=== PATIENT | female | born 1945 | race Caucasian/White ===

== ENCOUNTER 2016-04-07 07:23 | Emergency (ER) | payer MEDICARE, MEDICAID ==
[~2016-04-07] VITALS: Ht 162.6 cm; Wt 60.8 kg
[~2016-04-07 07:23] MED LIST: ALBUTEROL2 PUFFS/17 IN; ASPIRIN 81MG TA81 MG PO; MEDROL 4MG. DOSE4 MG PO; PAROXETINE HCL20 MG PO; SPIRIVA HA1 PUFF/INH IH; ZITHROMAX Z-PA250 M2 PO
[2016-04-07] MEDS ORDERED: HYDROXYZINE PAM25 MG PO (07:40)
[2016-04-07 08:08] LABS: HEMOGLOBIN 13.7 g/dL (12.2-16.2)
[2016-04-07 08:09] LABS: LYMPH % 9.3 % (10-50.0)
--- NOTE | 2016-04-07 08:12 | Emergency Room Report ---
History of Present Illness Time Seen by MD Aguilar Presenting Problem in Triage Pt arrived:Walked Presenting Problem:C/O ACHING AND COLD ALL OVER. C/O PAIN IN R RIB AREA. C/O PAIN WITH INSPIRATION. PT STATE BEGAN HAVING PAIN IN R SHOULDER AND R NECK AREA THAT BEGAN AFTER A "COUGHING FIT". PT STATES HAVING A PRODUCTIVE COUGH IS NORMAL FOR HER. 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 N Clinical Suspician of Infection? Y Mental Status: 1 - Regular (Normal Baseline) Sepsis Risk:Severe Sepsis Risk Have you (or family members/close friends) recently traveled outside the [place]? N If Yes, where/when: Have you had exposure to infectious disease within the past month? N TB? Other? Specify: Hx COPD, smokes one ppd; has had fever and chills with sputum, myalgias, intense coughing for the past three days; no vomiting; is incontinent with extreme coughing; has chronic SOB but states she had to "mop the floor while sitting in a chair" two days ago due to the wheezing. She uses Spiriva but is not on steroids daily and not on oxygen at home. She has rib pain when coughing intensely. No chest pain otherwise. No vomiting, no abdominal pain, no recent weight loss. No earache or sore throat. Denies any new calf pain. ALLERGIES Coded Allergies: No Known Allergies (04/07/16) Home Medications Active Scripts Albuterol (Albuterol Inhaler 17GM) 1 PUFF IN Q4HP PRN SOA #1 INH Ref 2 Prov: 12/30/14 Reported Medications Tiotropium [place] (Spiriva) 1 PUFF IH QHS ASPIRIN (Aspirin) 81 MG PO QHS Hydroxyzine Pamoate 25 MG PO DAILY #30 PAROXETINE HCL (Paroxetine Hcl) 20 MG PO DAILY #30 History Medical History General CAD? No Angina: No MD: No Hypertension? No Hyperlipidemia? No CHF? No DVT? No PE? No COPD? Yes Asthma? No Anemia? No GERD? No Gastric ulcers? No GI Bleed? No Hernia? No Thyroid Problems? No Hypothyroidism? No CVA? No Seizures? No Diabetes? No Insulin Dependent: No Insulin Pump: No Home FSBS? No Renal Insuffiency? No End Stage Renal Disease? No UTI? Yes Stones? No BPH? No GB Disease: No Nephritic Syndrome? No Asplenia? No Hepatitis? No Sickle Cell Disease? No Arthritis? Yes Migraines? No Cataracts? No Glaucoma? No MRSA? No HIV? No TB? No Anxiety? Yes Depression? 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 Physical Exam Vital Signs Vital Signs Date Time Temp Pulse Resp B/P Pulse O2 O2 Flow FiO2 Ox Delivery Rate 04/07 1121 98 20 141/67 92 04/07 1038 98.5 106 20 126/64 91 04/07 0923 120 20 150/103 94 04/07 0727 100.1 128 22 164/88 92 General Appearance normal appearance, WD/WN, no apparent distress Eye Exam - bilateral eye normal exam, bilateral eye PERRL Ear, Nose, Throat hearing grossly normal Neck normal inspection, non-tender, supple, full range of motion Respiratory Status Yes: trachea midline, chest symmetrical, non tender chest, use of accessory muscles, pain on expiration, productive cough. No: respiratory distress, tender on palpation, pain on inspiration, non productive cough. Lung Sounds bilateral: lungs clear, decreased breath sounds, wheezing. left: wheezing. right: wheezing. Cardiovascular normal exam, no peripheral edema, no gallop, no murmur, no rub, normal peripheral pulses, tachycardia (nebs) Gastrointestinal normal bowel sounds, normal exam, non tender, soft, no organomegaly, no pulsatile mass, no guarding, no rebound Extremities no calf tenderness, no pedal edema Neurologic alert, normal exam, no motor/sensory deficits, oriented x 3 Skin intact, normal color, warm/dry Lymphatic no adenopathy Medical Decision Making LABS/Meds/Orders Pt receiving controlled substance in ED? No Results/Orders Laboratory Tests 04/07/16 1100: Troponin I 0.09 H 04/07/16 0812: Influenza Type A Ag NOT DETECTED, Influenza Type B Ag NOT DETECTED 04/07/16 0755: Lactic Acid 1.6 04/07/16 075: Sodium 139, Potassium 3.6, Chloride 102, Carbon Dioxide 27, BUN 7, Creatinine 0.8, Estimated Creat Clear 63, Estimated GFR (MDRD) 71, Glucose 141 H, Calcium 8.8, Total Bilirubin 0.6, AST 23, ALT 22, Alkaline Phosphatase 137 H, Creatine Kinase 72, CK-MB (CK-2) Rel Index 2.2, CK and CKMB Interp 1.6, Troponin I 0.08 H, Total Protein 7.1, Albumin 3.5, Globulin 3.6 H, Albumin/Globulin Ratio 1.0 L, WBC 10.8, RBC 4.78, Hgb 13.7, Hct 40.2, MCV 84.2, RDW 13.9, Plt Count 260, Gran % 87.2 H, Gran # 9.4 H, Total Counted 100, Lymphocytes % 9.3 L, Monocytes % 3.5, Neutrophils 92 H, Lymphocytes (Manual) 5 L, Lymphocytes # 1.0 , Monocytes (Manual) 1 L, Monocytes # 0.4, Basophils # (Manual) 1, Atypical Lymphocytes 1, Platelet Estimate NORMAL, PUBS MCHC 34.1, MCH 28.7 Current Medication Orders Sig/Moises Start time Last Medication Dose Route Stop Time Status Admin Levofloxacin 0 .STK-MED ONE 04/07 828 DC .ROUTE Methylprednisolone 0 .STK-MED ONE 04/07 828 DC Sodium Succinate .ROUTE Albuterol/Ipratropium 0 .STK-MED ONE 04/07 817 DC INH Acetaminophen 650 MG ONCE ONE 04/07 814 CAN PO 04/07 815 Albuterol/Ipratropium 3 ML ONCE ONE 04/07 814 DC 04/07 INH 04/07 Levofloxacin 750 MG ONCE ONE 04/07 814 DC 04/07 PO 04/07 815 0832 Methylprednisolone 125 MG ONCE ONE 04/07 814 DC 04/07 Sodium Succinate IV 04/07 815 0832 Acetaminophen 1,000 MG ONCE ONE 04/07 0745 DC 04/07 PO 04/07 0746 0747 Sodium Chloride 10 ML PRN PRN 04/07 744 AC IV 04/08 0736 Acetaminophen 0 .STK-MED ONE 04/07 0743 DC PO Orders Procedure Date/time Status TROPONIN I 04/07 1100 Complete OP COURTSEY MEAL 04/07 0916 Active ELECTROCARDIOGRAM REQUEST 04/07 0907 Active RT Aerosol Treatment, Provide 04/07 0854 Active RT REQUEST DUONEB 04/07 0810 Active INFLUENZA A&B ANTIGENS 04/07 0810 Complete DIFFERENTIAL-WBC 04/07 0755 Complete ELECTROCARDIOGRAM REQUEST 04/07 0736 Active IV SALINE LOCK 04/07 735 Active 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 of ischemic chgs, no ectopy, normal QRS, normal MT, normal EKG (Stach 120 ) CM/EKG 2 EKG rate (Stach), no evid. of ischemic chgs, no ectopy, normal QRS, normal MT , normal EKG (unchanged from priors) XRAY/CT/US XRAY/CT/US XRAY chest XR interpretation by reviewed by me Xray Results normal/NAD, no infiltrates, normal heart size, normal lung inflation john (COPD, gran. dz seen 2012) Consult Physician Consult Time Called 1127 Reason Pt. Condition, Cardiology eval/care Comments Borderline elevated troponin; will consult Mirza/Dr. Morillo. Progress ED Progress Notes Date 04/07/16 Time 1154 Comment Patient troponin in indeterminate zone with no chest pain or cardiac equivalents reported; no huge delta between troponin one and troponin two; may be a false pos due to COPD. Mirza recommends disposition based on clinical presentation. Clinically, very low suspicion for acute cardiac event. No ST changes noted on EKG. Departure Departure Time of Disposition 1155 Disposition DC Home or Self Care(routine) Clinical Impression Primary Impression: COPD exacerbation Secondary Impressions: Bronchitis Condition STABLE Referrals Ezequiel Workman MD Patient Instructions Acute Bronchitis Additional Instructions Continue current inhalers at home; Rx medrol dose pack and Levaquin, see Dr. Workman in two to three days; recommend smoking cessation conversation with him. Discharge Counseling Counseled pt/family regarding diagnosis, test results, medications/RX, home care, follow up needs Prescriptions Current Visit Scripts Methylprednisolone (Medrol Dose Misael) 4 MG PO UD #1 MISAEL TAKE DIRECTED ON PACKAGING Levofloxacin (Levaquin 750MG Tab) 750 MG PO DAILY #4 TAB ED Critical Care Critical Care No at 1150
[2016-04-07] MEDS ORDERED: MEDROL 4MG. DOSE4 MG PO (08:21)
[2016-04-07] MEDS ORDERED: LEVAQUIN750 MG PO (08:21)
[2016-04-07 08:44] LABS: NEUTROPHILS 92 % (42-76)
--- NOTE | 2016-04-07 09:23 | RADIOLOGY REPORT PS360 ---
CHEST-PORTABLE HISTORY: SOA, COUGH, FEVER COMPARISON: 05/13/2012 FINDINGS: Normal heart size. Mild prominence of the mediastinum suggesting tortuous/ectatic aorta. Old granulomatous disease with COPD. Increased density is present in the right lower lobe consistent with an area of consolidation/pneumonia. No acute bony anomalies. IMPRESSION: 1. Increased density right lower lobe which may be related to consolidation or pneumonia. Suggest follow until clear as a ill-defined mass could have a similar appearance
[2016-04-07 12:04] VITALS: BP 128/75
== END 2016-04-07 12:05 | disposition home or self-care (01) ==
LOC: ER 07:23
PROVIDERS: Emergency Medicine
DX: J44.0 Chronic obstructive pulmonary disease with (acute) lower respiratory infection (principal); J20.9 Acute bronchitis, unspecified; J44.1 Chronic obstructive pulmonary disease with (acute) exacerbation; Z72.0 Tobacco use; F41.8 Other specified anxiety disorders